=== PATIENT | male | born 1985 | race Caucasian/White ===

== ENCOUNTER 2024-03-06 08:27 | Outpatient (CLI) | payer OTHER, SELFPAY | END 2024-03-06 08:28 | disposition home or self-care (01) | PROVIDERS: Visit Provider Family Medicine | DX: Z00.00 Encounter for general adult medical examination without abnormal findings (principal); Z13.6 Encounter for screening for cardiovascular disorders; Z13.1 Encounter for screening for diabetes mellitus; Z13.0 Encounter for screening for diseases of the blood and blood-forming organs and certain disorders involving the immune mechanism | CPT/HCPCS: 80048; 80061 ==